=== PATIENT | female | born 1990 | race Caucasian/White ===

== ENCOUNTER 2019-03-10 20:03 | Emergency (ER) | payer OTHER ==
[~2019-03-10] VITALS: Ht 154.9 cm; Wt 109.6 kg
[2019-03-10 21:07] VITALS: BP 134/84
[2019-03-10] MEDS ORDERED: ONDANSETRON ODT 4 MG ONE (21:20)
--- NOTE | 2019-03-10 21:28 | NUR ---
RN to bedside, adminstered medication (see MAR) reattached to monitor after patient encouraged to change into hospital gown. Vital signs stable.
[2019-03-10] MEDS ORDERED: ONDANSETRON ODT 4 MG PO ONE (21:30)
[2019-03-10 21:46] LABS: BASOPHILS # (AUTO) 0.04 x10^3/uL (0-0.1); BASOPHILS % (AUTO) 0 % (0-1); EOSINOPHILS % (AUTO) 1 % (1-7); LYMPHOCYTES # (AUTO) 2.16 x10^3/uL (1-3.4); LYMPHOCYTES % (AUTO) 20 % (22-44); MD NO; MEAN CORPUSCULAR HEMOGLOBIN 27.5 pg (27.0-34.8); MEAN CORPUSCULAR HGB CONC 33.2 g/dL (32.4-35.8); MEAN CORPUSCULAR VOLUME 82.8 fL (80-100); MEAN PLATELET VOLUME 9.4 fL (7.4-10.4); MONOCYTES # (AUTO) 0.53 x10^3/uL (0.2-0.8); MONOCYTES % (AUTO) 5 % (2-9); NEUTROPHILS # (AUTO) 7.78 x10^3/uL (1.8-6.8); NEUTROPHILS % (AUTO) 73 % (42-75); PLATELET COUNT 197 x10^3/uL (130-400); RED BLOOD COUNT 5.19 x10^6/uL (3.82-5.3); RED CELL DISTRIBUTION WIDTH 13.3 % (9.6-15.2)
[2019-03-10 21:58] LABS: ALBUMIN 3.2 g/dL (3.4-5.0); ANION GAP 6 mmol/L (5-15); CALCIUM 8.8 mg/dL (8.5-10.1); CHLORIDE 109 mmol/L (98-107); CREATININE 0.75 mg/dL (0.55-1.02)
--- NOTE | 2019-03-10 22:20 | NUR ---
fabrication technician to bedside with portable xray. Patient refusing. She is alert, oriented, educated on need to evaluate upper respiratory infections. Patient verbalized understanding and continues to deny. rn to bedside to obtain rapid flu sample. Sample sent to lab, awaiting results.
[2019-03-10 22:38] LABS: RAPID INFLUENZA A Negative (Negative); RAPID INFLUENZA B Negative (Negative)
--- NOTE | 2019-03-10 22:54 | NUR ---
RN to bedside to inform of patient discharge orders in place. Paperwork not available yet. RN to bedside to update vitals. Patient has been removed blood pressure cuff and oxygen monitor several times. Vitals have been stable initially. Patient not cooperating with vitals, unable to update. Will discharge when paperwork is ready.
== END 2019-03-10 23:00 | disposition home or self-care (01) ==
LOC: ED 22:03
DX: R42 Dizziness and giddiness (principal); R05 Cough; F17.200 Nicotine dependence, unspecified, uncomplicated; Z90.89 Acquired absence of other organs; Z86.39 Personal history of other endocrine, nutritional and metabolic disease
CPT/HCPCS: 36415; 80048; 82040; 84443; 84703; 85025; 87400; 93005; 99284; Q0162

== ENCOUNTER → 2019-09-10 | Outpatient (CLI) | payer OTHER | END | disposition home or self-care (01) | LOC: CFH 10:17 | PROVIDERS: ATTEND Nurse Practitioner Family | DX: Z12.31 Encounter for screening mammogram for malignant neoplasm of breast (principal); Z71.89 Other specified counseling; F64.0 Transsexualism | CPT/HCPCS: 77067 ==

== ENCOUNTER → 2020-09-11 | Outpatient (CLI) | payer OTHER | END | disposition home or self-care (01) | LOC: CFH 07:09 | PROVIDERS: ATTEND Family Medicine | DX: Z12.31 Encounter for screening mammogram for malignant neoplasm of breast (principal) | CPT/HCPCS: 77067 ==